=== PATIENT | female | born 1995 | race Caucasian/White ===

== ENCOUNTER 2016-10-27 06:00 | Emergency (ER) | payer OTHER ==
[2016-10-27] MEDS ORDERED: OMNIPAQUE 350 MG/ML, 75ML BOTTLE ONE (06:45)
[2016-10-27 11:54] LABS: BLOOD UREA NITROGEN 12 mg/dL (7-18)
[2016-10-27 13:45] LABS: WHITE BLOOD COUNT 11.4 x10^3/uL (4.5-13.2)
[2016-10-27 13:46] LABS: HEMOGLOBIN 13.5 g/dL (11.7-16.4)
== END 2016-10-27 13:38 | disposition home or self-care (01) ==
LOC: ED 06:20
DX: K04.7 Periapical abscess without sinus (principal); K08.89 Other specified disorders of teeth and supporting structures
CPT/HCPCS: 36415; 70487; 80048; 82040; 85025; 99285; Q9967